=== PATIENT | male | born 1950 | race Caucasian/White ===

== ENCOUNTER → 2018-01-10 | Outpatient (CLI) | payer OTHER, BC | LOC: GIMAGING 15:27 | PROVIDERS: ATTEND Family Medicine | DX: J98.09 Other diseases of bronchus, not elsewhere classified (principal) | CPT/HCPCS: 71046-PO ==

== ENCOUNTER 2018-05-08 08:47 | Day surgery (SDC) | payer OTHER, BC ==
[2018-05-08] MEDS ORDERED: ceFAZolin 2 GM/DEXTROSE 100 ML IV ONE (09:01)
[2018-05-08] MEDS ORDERED: LR 1,000 ML IV ONE (09:02)
[2018-05-08] MEDS ORDERED: LIDOCAINE 1% 2 ML INJ ID PRN (09:02)
[2018-05-08] MEDS ORDERED: BUPIVACAINE 0.25% 30 ML SDV ONE ×2 (09:04→09:32)
--- NOTE | 2018-05-08 10:16 | PDHPUP ---
History & Physical Update H&P update statement: This history and physical update is based on an assessment of the patient which was completed after admission or registration (within 24 hours), but prior to the surgery/procedure. H&P update: H&P reviewed & patient examined, no change in patient's condition since H&P completed
[2018-05-08] MEDS ORDERED: MIDAZOLAM 2 MG/2 ML VIAL IVP ONE (10:32)
--- NOTE | 2018-05-08 10:32 | PDANEPAE ---
ANE History of Present Illness laparoscopic B inguinal hernia ANE Past Medical History - Cardiovascular History Hx Hypertension: No Hx Arrhythmias: No Hx Chest Pain: No Hx Coronary Artery / Peripheral Vascular Disease: Yes Hx CHF / Valvular Disease: No Hx Palpitations: No Cardiovascular History Comment: CABG 4 - Pulmonary History Hx COPD: No Hx Asthma/Reactive Airway Disease: No Hx Recent Upper Respiratory Infection: No Hx Oxygen in Use at Home: No Hx Sleep Apnea: No Sleep Apnea Screening Result - Last Documented: Negative - Neurologic History Hx Cerebrovascular Accident: No Hx Seizures: No Hx Dementia: No - Endocrine History Hx Diabetes: No Obesity: mild - Renal History Hx Renal Disorders: No - Liver History Hx Hepatic Disorders: No - Neurological & Psychiatric Hx Hx Neurological and Psychiatric Disorders: No - Cancer History Hx Cancer: Yes Cancer History Comment: BASAL CELL - Congenital Disorder History Hx Congenital Disorders: No - GI History GERD: no Hx Gastrointestinal Disorders: No - Other Health History Other Health History: NONE - Chronic Pain History Chronic Pain: No - Surgical History Prior Surgeries: EYE SURGERY. COLONOSCOPY. CABG ANE Review of Systems Review of Systems: - Exercise capacity METS (RN): 5 METS ANE Patient History - Allergies Allergies/Adverse Reactions: No Known Allergies Allergy (Verified 05/03/18 11:18) - Home Medications Home Medications: Aspirin 81mg (*) 05/03/18 [Last Taken Unknown] Multivitamins 05/03/18 [Last Taken Unknown] Rosuvastatin Calcium 05/03/18 [Last Taken Unknown] - NPO status NPO Since - Liquids (Date): 05/07/18 NPO Since - Liquids (Time): 20:00 NPO Since - Solids (Date): 05/07/18 NPO Since - Solids (Time): 19:00 - Anes Hx Anes Hx: no prior problems - Smoking Hx Smoking Status: Never smoked Marijuana use: No - Alcohol Use Alcohol Use: Other (3 drinks/week) - Family Anes Hx Family Anes Hx: none Family Hx Anesthesia Complications: NONE ANE Labs/Vital Signs - Vital Signs Blood Pressure: 137/85 Heart Rate: 54 Respiratory Rate: 16 O2 Sat (%): 95 Height: 175.26 cm Weight: 79.379 kg ANE Physical Exam - Airway Neck exam: FROM Mallampati Score: Class 1 Mouth exam: normal dental/mouth exam - Pulmonary Pulmonary: clear to auscultation - Cardiovascular Cardiovascular: regular rate and rhythym - ASA Status ASA Status: II ANE Anesthesia Plan Anesthesia Plan: general endotracheal anesthesia
[2018-05-08] MEDS ORDERED: MIDAZOLAM 2 MG/2 ML VIAL ONE (10:36)
[2018-05-08] MEDS ORDERED: fentaNYL 250 MCG/5 ML INJ ONE (10:37)
[2018-05-08] MEDS ORDERED: ROCURONIUM 50 MG/5 ML VIAL ONE (10:37)
[2018-05-08] MEDS ORDERED: DEXAMETHASONE 4 MG/ML VIAL ONE (10:37)
[2018-05-08] MEDS ORDERED: PROPOFOL 200 MG/20 ML VIAL ONE (10:37)
[2018-05-08] MEDS ORDERED: ePHEDrine SULFATE 25 MG/5 ML SYR ONE (10:58)
[2018-05-08] MEDS ORDERED: PHENYLEPHRINE HCL 100 MCG/ML SYR ONE (11:01)
[2018-05-08] MEDS ORDERED: ONDANSETRON 4 MG/2 ML VIAL ONE (11:19)
[2018-05-08] MEDS ORDERED: fentaNYL 100 MCG/2 ML INJ IVP PRN (11:26)
[2018-05-08] MEDS ORDERED: oxyCODONE IR 5 MG TAB PO PRN (11:26)
[2018-05-08] MEDS ORDERED: NALOXONE HCL 0.4 MG/ML INJ IVP PRN (11:26)
[2018-05-08] MEDS ORDERED: HYDROCODONE/APAP 5/325 TAB PO PRN (11:26)
[2018-05-08] MEDS ORDERED: GLYCOPYRROLATE 0.2 MG/1 ML VIAL ONE (11:27)
[2018-05-08] MEDS ORDERED: NEOSTIGMINE METHYLSULFATE 5 MG/5 ML SYR ONE (11:27)
--- NOTE | 2018-05-08 11:40 | POSTOPPROG ---
Post Op Note Date of Operation: 05/08/18 Surgeon: Evan Botello Slipman: Soo Haywood Anesthesiologist: Riley Holm Anesthesia: GET(General Endotracheal), IV Sedation Pre-op Diagnosis: BIH Post-op Diagnosis: same Procedure: lap BIH repair c mesh Findings: R direct hernia, L indirect Inf/Abcess present in the surg proc area at time of surgery?: No EBL: Minimal Complications: none Specimen(s): none
[2018-05-08 12:32] VITALS: BP 141/77
--- NOTE | 2018-05-08 12:40 | POSTANESTH ---
Post Anesthetic Evaluation Cardiovascular Status: Similar to Pre-Op Cond Respiratory Status: Normal, Stable Level of Consciousness/Mental Status: Can Participate in Eval Pain Control: Adequate, Prn Tx Ordered Nausea/Vomiting Control: Adequate, Prn Tx Ordered Complications Possibly Related to Anesthesia: None Noted
--- NOTE | 2018-05-12 20:06 | GOP ---
[f rep st] OPERATIVE REPORT DATE OF OPERATION: 05/08/2018 SURGEON: Evan Botello MD SCRAP CRANE OPERATOR: LILA Moreno. PREOPERATIVE DIAGNOSIS: Bilateral inguinal hernias. POSTOPERATIVE DIAGNOSIS: Bilateral inguinal hernias. PROCEDURE PERFORMED: Laparoscopic bilateral hernia repairs with mesh. FINDINGS: Patient was found to have bilateral hernias, large indirect on the left and smaller direct on the right DESCRIPTION OF PROCEDURE: The patient was taken to the operating room where he received a satisfactory general endotracheal anesthesia. He was placed in supine position, prepped and draped in the usual sterile fashion. An infraumbilical incision was made. Dissection was carried down to the rectus sheath which was incised. A subfascial tunnel was developed in the preperitoneal space. That was dissected free with a balloon dissector which was replaced with a CO2 insufflation trocar. 2 other trocars were then placed in the midline under direct vision. Ari ligament was exposed bilaterally. The cords were mobilized bilaterally. Peritoneum was dissected off the cord structures. On the left side, there was a much larger indirect sac which was dissected free and reduced. A Covidien polyester mesh patch was introduced on the left side with a split patch to pass the limb around the cord structures. It was anchored in place with AbsorbaTack, securing it to Ari ligament, to the lacunar ligament, to the anterior abdominal wall and the lateral abdominal wall outside the internal ring. Hemostasis was assured. Attention was turned to the other side where a smaller indirect sac was dissected free and reduced and a small to moderate direct defect was freed up. Hemostasis was assured. Again, a Covidien polyester mesh patch was introduced and placed over the inguinal floor. It was anchored in place in a similar manner. Hemostasis was assured. Trocars removed under direct vision. Trocar sites were closed with 0 Vicryl for the fascia and 4-0 Monocryl subcuticular stitch for the skin. All layers were infiltrated with 0.5% Marcaine. Blood loss was negligible. /[id number]/MODL MTDD
== END 2018-05-08 14:00 | disposition home or self-care (01) ==
LOC: FSGY 08:47
PROVIDERS: ATTEND Surgery
PROC: 0YUA4JZ Supplement Bilateral Inguinal Region with Synthetic Substitute, Percutaneous Endoscopic Approach (ICD-10-PCS; principal; 2018-05-08 10:15)
DX: K40.20 Bilateral inguinal hernia, without obstruction or gangrene, not specified as recurrent (principal); I25.10 Atherosclerotic heart disease of native coronary artery without angina pectoris; E78.00 Pure hypercholesterolemia, unspecified; Z86.010 Personal history of colon polyps
CPT/HCPCS: C1727; C1781; J0690; J1100; J2250; J2370; J2405; J2704; J2710; J3010